=== PATIENT | female | born 1980 | race Caucasian/White ===

== ENCOUNTER 2016-10-16 03:28 | Emergency (ER) | payer OTHER ==
[~2016-10-16] VITALS: Ht 162.6 cm; Wt 51.3 kg
[~2016-10-16 03:28] MED LIST: ALPRAZOLAM0.5 MG PO; BACTRIM,SEPT1 TABLET PO; BENADRYL ALLERG25 MG PO; CLEOCIN300 MG PO; CLONAZEPAM1 MG PO; FLUOXETINE HCL20 MG PO; KEFLEX500 MG PO; KLONOPIN1 MG PO; LAMICTAL25 MG PO; MIRTAZAPINE30 MG PO; MOBIC7.5 MG PO; NAPROSYN500 MG PO; NO MEDS; NOHOMEMEDS; PHENERGAN-CODE120 ML PO; PREDNISONE50 MG PO; PROZAC40 MG PO; PYRIDIUM100 MG PO; QUETIAPINE FUM100 MG PO; REMERON30 M2 PO; ROXICODONE5 MG PO; SEROQUEL100 MG PO; TYLENOL EXTRA500 MG PO; TYLENOL WITH C1 EACH PO; VALIUM5 MG PO; VENTOLIN HFA18 GM IH; ZITHROMAX Z-PA250 MG PO
[2016-10-16 03:55] LABS: MCV 88.5 FL (83-99); MEAN PLAT.VOLUME 10.6 uM^3 (9.5-12.4); PLATELET COUNT 219 K/uL (156-360); RBC DIS.WIDTH-CV 14.7 % (11.8-14.6); RED BLOOD COUNT 4.52 M/uL (3.80-5.20); WHITE BLOOD COUNT 8.9 K/uL (4.1-10.2)
[2016-10-16 04:03] LABS: CHLORIDE 102 mEq/L (99-109); POTASSIUM 2.8 mEq/L (3.7-5.4); SODIUM 139 mEq/L (136-147)
[2016-10-16 04:05] LABS: GLUCOSE 109 mg/dL (70-99)
[2016-10-16 04:06] LABS: ANION GAP 10 MEQ/L (2-14)
[2016-10-16 04:07] LABS: TOTAL BILIRUBIN 0.3 mg/dL (0.0-1.0)
[2016-10-16 04:08] LABS: ALKALINE PHOSPHATASE 66 IU/L (3-129)
[2016-10-16 04:09] LABS: GFR ESTIMATE (CALCULATED) > 59 mL/min/
[2016-10-16 04:10] LABS: UREA NITROGEN (BUN) 9 mg/dL (9-23)
[2016-10-16 04:18] LABS: QUANTITATIVE HCG < 4.0 MIU/ML
[2016-10-16 08:32] LABS: ADD MIUA? YES; BILIRUBIN NEGATIVE; BLOOD LARGE; COLOR YELLOW ((YELLOW)); GLUCOSE (STRIP) NEGATIVE; KETONES 5; LEUKOCYTES NEGATIVE; NITRITE NEGATIVE; PROTEIN (STRIP) 30; SPECIFIC GRAVITY 1.017 (1.000-1.030); UROBILINOGEN 0.2 MG/DL (0.2-1.0)
[2016-10-16 08:46] LABS: BACTERIA 1+ /HPF; CALCIUM OXALATE CRYSTALS 1+ /HPF; EPITHELIAL CELLS 2+ /HPF; MUCUS 2+ /LPF; RED BLOOD CELLS 0-5 /HPF (0-5); UCUL ADDED? NO; UNCLASSIFIED CRYSTALS 3+ /HPF
[2016-10-16] MEDS ORDERED: NAPROXEN500 MG PO (10:13)
[2016-10-16 10:30] VITALS: BP 121/81
== END 2016-10-16 10:31 | disposition home or self-care (01) ==
LOC: EME 03:28
DX: S39.012A Strain of muscle, fascia and tendon of lower back, initial encounter (principal); T81.89XA Other complications of procedures, not elsewhere classified, initial encounter; I25.2 Old myocardial infarction; Z98.51 Tubal ligation status; Y83.8 Other surgical procedures as the cause of abnormal reaction of the patient, or of later complication, without mention of misadventure at the time of the procedure; Z88.6 Allergy status to analgesic agent; Z88.2 Allergy status to sulfonamides; F17.200 Nicotine dependence, unspecified, uncomplicated
CPT/HCPCS: 74176; 80053; 81003; 84702; 85027; 99281; 99285; J1885; J7030

== ENCOUNTER 2016-12-14 11:11 | Emergency (ER) | payer OTHER ==
[~2016-12-14] VITALS: Ht 162.6 cm; Wt 47.8 kg
[~2016-12-14 11:11] MED LIST changes: +NAPROXEN500 MG PO
[2016-12-14 11:34] LABS: HEMATOCRIT 45.6 % (36.0-46.0); MCH 29.3 PG (29.0-34.0); MCHC 33.3 G/DL (30.0-36.0); MCV 87.9 FL (83-99); MEAN PLAT.VOLUME 10.3 uM^3 (9.5-12.4); PLATELET COUNT 327 K/uL (156-360); RBC DIS.WIDTH-CV 14.1 % (11.8-14.6); RBC DIS.WIDTH-SD 45.1 % (39-53); RED BLOOD COUNT 5.19 M/uL (3.80-5.20); WHITE BLOOD COUNT 8.8 K/uL (4.1-10.2)
[2016-12-14 11:44] LABS: CHLORIDE 101 mEq/L (99-109); POTASSIUM 2.9 mEq/L (3.7-5.4); SODIUM 139 mEq/L (136-147)
[2016-12-14 11:46] LABS: GLUCOSE 124 mg/dL (70-99)
[2016-12-14 11:47] LABS: ANION GAP 13 MEQ/L (2-14)
[2016-12-14 11:50] LABS: GFR ESTIMATE (CALCULATED) > 59 mL/min/; UREA NITROGEN (BUN) 5 mg/dL (9-23)
[2016-12-14 12:14] LABS: TOTAL BILIRUBIN 0.3 mg/dL (0.0-1.0)
[2016-12-14 12:16] LABS: ALKALINE PHOSPHATASE 74 IU/L (3-129)
[2016-12-14 12:16] LABS: ADD MIUA? YES; BILIRUBIN NEGATIVE; BLOOD SMALL; COLOR YELLOW ((YELLOW)); GLUCOSE (STRIP) NEGATIVE; KETONES NEGATIVE; LEUKOCYTES NEGATIVE; NITRITE NEGATIVE; PROTEIN (STRIP) NEGATIVE; SPECIFIC GRAVITY 1.011 (1.000-1.030); UROBILINOGEN 0.2 MG/DL (0.2-1.0)
[2016-12-14 12:18] LABS: DIRECT BILIRUBIN 0.2 mg/dL (0.0-0.3)
[2016-12-14 12:19] LABS: LIPASE 11 U/L (1.0-51.0)
[2016-12-14 12:20] LABS: BACTERIA NONE SEEN /HPF; EPITHELIAL CELLS 2+ /HPF; MUCUS 2+ /LPF; RED BLOOD CELLS 0-5 /HPF (0-5); WHITE BLOOD CELLS 0-5 /HPF (0-5)
[2016-12-14 12:47] LABS: INTERNAL CONTROL VALID? YES; MONOSPOT (MONONUCLEOSIS SEROL) NEGATIVE
[2016-12-14] MEDS ORDERED: ZOFRAN ODT8 MG PO (14:43)
[2016-12-14] MEDS ORDERED: CIPRO500 MG PO (14:43)
[2016-12-14] MEDS ORDERED: FLAGYL500 MG PO (14:43)
[2016-12-14] MEDS ORDERED: PRILOSEC OTC20 MG PO (14:43)
[2016-12-14] MEDS ORDERED: MOTRIN600 MG PO (14:43)
[2016-12-14 15:30] VITALS: BP 119/86
== END 2016-12-14 15:30 | disposition home or self-care (01) ==
LOC: EME 11:11
PROVIDERS: Emergency Medicine
DX: K80.20 Calculus of gallbladder without cholecystitis without obstruction (principal); N83.202 Unspecified ovarian cyst, left side; K52.9 Noninfective gastroenteritis and colitis, unspecified; R06.02 Shortness of breath; R07.89 Other chest pain; R05 Cough; Z88.3 Allergy status to other anti-infective agents; F17.200 Nicotine dependence, unspecified, uncomplicated; Z71.6 Tobacco abuse counseling
CPT/HCPCS: 71020; 74177; 80048; 80076; 81003; 83690; 85027; 86308; 99281; 99285; J1885; J2270; J2405; J3480; J7030

== ENCOUNTER 2017-06-06 11:22 | Emergency (ER) | payer SELFPAY ==
[~2017-06-06] VITALS: Ht 162.6 cm; Wt 46.6 kg
[~2017-06-06 11:22] MED LIST changes: +CIPRO500 MG PO; +FLAGYL500 MG PO; +MOTRIN600 MG PO; +PRILOSEC OTC20 MG PO; +ZOFRAN ODT8 MG PO
[2017-06-06 12:38] LABS: INFLUENZA A VIRAL ANTIGEN NEGATIVE; INFLUENZA B VIRAL ANTIGEN NEGATIVE
[2017-06-06] MEDS ORDERED: ZITHROMAX Z-PA250 MG PO (12:49)
[2017-06-06] MEDS ORDERED: PREDNISONE20 MG PO (12:49)
[2017-06-06] MEDS ORDERED: TESSALON200 MG PO (12:49)
[2017-06-06] MEDS ORDERED: PROAIR RESPICL90 MCG IH (12:50)
[2017-06-06 13:06] VITALS: BP 118/90
== END 2017-06-06 13:17 | disposition home or self-care (01) ==
LOC: EME 11:22
PROVIDERS: Nurse Practitioner Family
DX: J40 Bronchitis, not specified as acute or chronic (principal); F17.200 Nicotine dependence, unspecified, uncomplicated; Z59.0 Homelessness
CPT/HCPCS: 71020; 87502; 94640; 99281; 99284; J7512

== ENCOUNTER 2017-08-26 17:48 | Inpatient (IN) | payer OTHER ==
[~2017-08-26] VITALS: Ht 162.6 cm; Wt 46.9 kg
[~2017-08-26 17:48] MED LIST changes: +PREDNISONE20 MG PO; +PROAIR RESPICL90 MCG IH; +TESSALON200 MG PO
[2017-08-26 18:32] LABS: HEMATOCRIT 41.8 % (36.0-46.0); HEMOGLOBIN 14.4 G/DL (11.9-15.5); MCH 31.2 PG (29.0-34.0); MCHC 34.4 G/DL (30.0-36.0); MCV 90.7 FL (83-99); PLATELET COUNT 292 K/uL (156-360); RBC DIS.WIDTH-CV 13.3 % (11.8-14.6); RBC DIS.WIDTH-SD 44.1 % (39-53); RED BLOOD COUNT 4.61 M/uL (3.80-5.20); WHITE BLOOD COUNT 11.4 K/uL (4.1-10.2)
[2017-08-26 18:43] LABS: ALBUMIN 3.9 g/dL (3.2-4.8); CHLORIDE 101 mEq/L (99-109); POTASSIUM 2.8 mEq/L (3.7-5.4); SODIUM 139 mEq/L (136-147)
[2017-08-26 18:46] LABS: GLUCOSE 103 mg/dL (70-99); TOTAL PROTEIN 7.1 g/dL (6.4-8.3)
[2017-08-26 18:47] LABS: TOTAL BILIRUBIN 0.5 mg/dL (0.0-1.0)
[2017-08-26 18:49] LABS: ALKALINE PHOSPHATASE 67 IU/L (3-129); CREATININE 0.7 mg/dL (0.6-1.3); GFR ESTIMATE (CALCULATED) > 59 mL/min/; SERUM ETHYL ALCOHOL < 10 mg/dL
[2017-08-26 18:51] LABS: AST (GOT) 10 IU/L (2-34); UREA NITROGEN (BUN) 7 mg/dL (9-23)
[2017-08-26 18:52] LABS: ALT (GPT) 8 IU/L (3-49)
[2017-08-26 18:58] LABS: QUANTITATIVE HCG < 4.0 MIU/ML
[2017-08-26 21:12] LABS: APPEARANCE CLEAR ((CLEAR)); BILIRUBIN NEGATIVE; BLOOD NEGATIVE; COLOR STRAW ((YELLOW)); GLUCOSE (STRIP) NEGATIVE; KETONES NEGATIVE; LEUKOCYTES NEGATIVE; NITRITE NEGATIVE; PROTEIN (STRIP) NEGATIVE; SPECIFIC GRAVITY 1.005 (1.000-1.030); UROBILINOGEN 0.2 MG/DL (0.2-1.0)
[2017-08-26 21:22] LABS: AMPHETAMINE NEGATIVE (500 ng/mL); BARBITURATES NEGATIVE (200 ng/mL); BENZODIAZEPINES NEGATIVE (150 ng/mL); BUPRENORPHINE NEGATIVE (10 ng/mL); COCAINE PRESUMPTIVE POSITIVE (150 ng/mL); METHADONE NEGATIVE (200 ng/mL); METHAMPHETAMINE NEGATIVE (500 ng/mL); OPIATES (MORPHINE) NEGATIVE (100 ng/mL); OXYCODONE NEGATIVE (100 ng/mL); PHENCYCLIDINE PRESUMPTIVE POSITIVE (25 ng/mL); PROPOXYPHENE NEGATIVE (300 ng/mL); THC CANNABINOIDS PRESUMPTIVE POSITIVE (50 ng/mL); TRICYCLIC ANTIDEPRESSANTS NEGATIVE (300 ng/mL)
[2017-08-26 23:57] VITALS: BP 111/72
[2017-08-27 07:32] VITALS: BP 102/55
[2017-08-27 15:15] VITALS: BP 90/50
[2017-08-28 07:33] VITALS: BP 91/54
[2017-08-28] MEDS ORDERED: QUETIAPINE FUM100 MG PO (08:38)
[2017-08-28] MEDS ORDERED: TRAZODONE HCL50 MG PO (08:38)
[2017-08-28] MEDS ORDERED: HYDROXYZINE PAM50 MG PO (08:40)
== END 2017-08-28 12:58 | disposition home or self-care (01) | DRG 897 ==
LOC: EME 17:48 → EDOF 20:53 → 1WEST 20:53 → ENRESERV 23:43 → 1WEST 23:48
PROVIDERS: Emergency Medicine
DX: F19.14 Other psychoactive substance abuse with psychoactive substance-induced mood disorder (principal); F41.1 Generalized anxiety disorder; F16.10 Hallucinogen abuse, uncomplicated; F14.10 Cocaine abuse, uncomplicated; R45.851 Suicidal ideations; F12.10 Cannabis abuse, uncomplicated; F32.9 Major depressive disorder, single episode, unspecified; E87.6 Hypokalemia; Z59.0 Homelessness; Z76.5 Malingerer [conscious simulation]; J45.909 Unspecified asthma, uncomplicated; I25.2 Old myocardial infarction; F17.200 Nicotine dependence, unspecified, uncomplicated
CPT/HCPCS: 80053; 81003; 84702; 84999; 85027; 90839; 97165 GO; 99281; 99285; G0480; Q0177

== ENCOUNTER 2017-11-21 03:56 | Emergency (ER) | payer OTHER ==
[~2017-11-21] VITALS: Ht 162.6 cm; Wt 48.3 kg
[~2017-11-21 03:56] MED LIST changes: +HYDROXYZINE PAM50 MG PO; +TRAZODONE HCL50 MG PO
[2017-11-21 05:26] VITALS: BP 129/92
[2017-11-23 10:34] LABS: SOURCE SWAB
== END 2017-11-21 05:26 | disposition home or self-care (01) ==
LOC: EME 03:56
PROVIDERS: Emergency Medicine
DX: A59.9 Trichomoniasis, unspecified (principal); Z86.19 Personal history of other infectious and parasitic diseases; Z59.0 Homelessness; I25.2 Old myocardial infarction; J45.909 Unspecified asthma, uncomplicated; F17.200 Nicotine dependence, unspecified, uncomplicated; F41.9 Anxiety disorder, unspecified; F32.9 Major depressive disorder, single episode, unspecified; Z88.2 Allergy status to sulfonamides; Z88.6 Allergy status to analgesic agent
CPT/HCPCS: 87210; 87491; 87591; J0696